=== PATIENT | female | born 1985 | race Caucasian/White ===

== ENCOUNTER 2024-10-19 13:01 | Emergency (ER) | payer MEDICARE, OTHER ==
[~2024-10-19] VITALS: Ht 162.6 cm; Wt 131.5 kg
[2024-10-19] MEDS ORDERED: ALBUTEROL/IPRATROPIUM 3 ML NEB INH ONE (13:15)
[2024-10-19 13:28] LABS: BASOPHILS 5.2 % (0-2); EOSINOPHILS 3.2 % (0-6); HEMATOCRIT 36.7 % (35.0-50.0); HEMOGLOBIN 12.2 g/dL (12.0-18.0); LYMPHOCYTES 16.4 % (24-44); MCHC 33.2 g/dl (30-36); MCV 87.5 fl (81-99); MONOCYTES 7.6 % (0-12); NEUTROPHILS 67.6 % (39-80); PLATELET COUNT 202 K/uL (140-440); RBC 4.19 M/ul (4.3-5.7); RDW 14.2 (10.5-15.0)
[2024-10-19 14:02] LABS: ALBUMIN/GLOBULIN RATIO 0.68 (1.1-2.4); ANION GAP 15.5 (7-21); BILIRUBIN, TOTAL 0.3 ng/dL (0.2-1.0); BUN/CREATININE RATIO 15.73 (6.0-28.6); CALCIUM 8.4 mg/dL (8.5-10.1); CREATININE, SERUM 0.89 mg/dL (0.55-1.02); POTASSIUM 3.5 mmol/L (3.5-5.1); PROTEIN, TOTAL 7.4 g/dL (6.4-8.2)
[2024-10-19] MEDS ORDERED: ABILIFY2 MG PO (14:02)
[2024-10-19] MEDS ORDERED: CHLORPROMAZINE100 MG PO (14:42)
[2024-10-19] MEDS ORDERED: CLONIDINE HCL0.2 MG PO (14:43)
[2024-10-19] MEDS ORDERED: CHLORPROMAZINE25 MG PO (14:43)
[2024-10-19] MEDS ORDERED: OMEPRAZOLE20 MG PO (14:44)
[2024-10-19] MEDS ORDERED: ATIVAN1 MG PO (14:44)
[2024-10-19] MEDS ORDERED: PERPHENAZINE8 MG PO (14:47)
[2024-10-19] MEDS ORDERED: SAPHRIS10 MG SL (14:48)
[2024-10-19] MEDS ORDERED: methylPREDNISolone SOD SUCC 125 MG/2 ML VIAL IV ONE (15:00)
[2024-10-19] MEDS ORDERED: ALBUTEROL SULFATE 0.083% 3 ML VIAL INH ONE (15:00)
[2024-10-19] MEDS ORDERED: PREDNISONE20 MG PO (16:26)
[2024-10-19] MEDS ORDERED: VENTOLIN HFA18 GM INH (16:26)
[2024-10-19] MEDS ORDERED: ALBUTEROL SULFATE 8 GM HOME.PACK INH ONE (16:30)
[2024-10-19] MEDS ORDERED: INHALER, ASSIST DEVICES 1 EACH SPACER MISC ONE (16:30)
[2024-10-19 16:47] VITALS: BP 152/82
--- NOTE | 2024-10-19 21:47 | EKG ---
[facility] [address] [facility] [place] [address] Signed Sinus tachycardia Nonspecific T wave abnormality Abnormal ECG No previous ECGs available Confirmed by Nubia Millan MD () on 10/19/2024 9:47:42 PM Electronically Signed By: NUBIA MILLAN MD 10/19/247 PATIENT NAME: MELLISSA HERNANDEZYN Miguel Electrocardiogram DATE OF : 89 PHYSICIAN: NUBIA MILLAN MD REPORT #: [id number] REPORT IS CONFIDENTIAL AND NOT TO BE RELEASED WITHOUT AUTHORIZATION
== END 2024-10-19 16:47 | disposition home or self-care (01) ==
LOC: ED 13:01
PROVIDERS: Emergency Medicine
DX: J20.9 Acute bronchitis, unspecified (principal); Z79.899 Other long term (current) drug therapy
CPT/HCPCS: 36415; 71045; 80053; 83880; 84443; 84484; 85025; 93005; 93010; 94640; 94664; 96374; 99285-25; J2919